=== PATIENT | male | born 1950 | race Caucasian/White ===

== ENCOUNTER 2020-09-13 09:00 | Day surgery (SDC) | payer OTHER, MEDICARE ==
[2020-09-11 14:20] VITALS: BMI 27.8
[2020-09-13] MEDS ORDERED: MIDAZOLAM HCL 2 MG/2 ML SINGLE DOSE VIAL ONE ×2 (10:40→11:52)
[2020-09-13] MEDS ORDERED: PROPOFOL 20 ML ONE ×5 (10:46)
[2020-09-13] MEDS ORDERED: BUPIVACAINE HCL/PF 0.25% (2.5MG/ML) 10 ML VIAL ONE (12:31)
[2020-09-13 13:14] VITALS: TEMP 97.6
[2020-09-13 13:17] VITALS: BP 131/74; PULSE 64
== END 2020-09-13 13:10 | disposition home or self-care (01) ==
LOC: FASU 09:00
PROVIDERS: ATTEND Orthopaedic Surgery Hand Surgery
PROC: 0LN70ZZ Release Right Hand Tendon, Open Approach (ICD-10-PCS; 2020-09-13)
PROC: 0RGW04Z Fusion of Right Finger Phalangeal Joint with Internal Fixation Device, Open Approach (ICD-10-PCS; principal; 2020-09-13 10:30)
PROC: 0LN70ZZ Release Right Hand Tendon, Open Approach (ICD-10-PCS; 2020-09-13 10:30)
DX: M19.041 Primary osteoarthritis, right hand (principal); M65.321 Trigger finger, right index finger; M65.331 Trigger finger, right middle finger
CPT/HCPCS: 73140-TC-RT-FY; 82962

== ENCOUNTER 2021-07-04 07:21 | Day surgery (SDC) | payer OTHER, MEDICARE ==
[2021-06-20 11:40] VITALS: BMI 28.4
[2021-07-04] MEDS ORDERED: PROPOFOL 20 ML ONE (09:14)
[2021-07-04] MEDS ORDERED: MIDAZOLAM HCL 2 MG/2 ML SINGLE DOSE VIAL ONE ×2 (09:14)
[2021-07-04] MEDS ORDERED: fentaNYL CITRATE 250 MCG/5 ML VIAL ONE (09:14)
[2021-07-04] MEDS ORDERED: KETOROLAC TROMETHAMINE 30 MG/1 ML VIAL ONE (09:41)
[2021-07-04] MEDS ORDERED: DEXAMETHASONE SOD PHOSPHATE 4 MG/1 ML VIAL ONE (09:41)
[2021-07-04] MEDS ORDERED: ceFAZolin SODIUM 1 GM VIAL ONE (09:41)
[2021-07-04] MEDS ORDERED: ONDANSETRON 4 MG/2 ML VIAL ONE (09:41)
[2021-07-04] MEDS ORDERED: oxyCODONE HCL 5 MG TABLET PO PRN (09:52)
[2021-07-04] MEDS ORDERED: ONDANSETRON 4 MG/2 ML VIAL IVPUSH PRN (09:52)
[2021-07-04] MEDS ORDERED: LACTATED RINGERS SOLUTION 1,000 ML IV SCH (10:00)
[2021-07-04 10:31] VITALS: TEMP 97.5
[2021-07-04 15:47] VITALS: BP 115/73; PULSE 63
== END 2021-07-04 10:55 | disposition home or self-care (01) ==
LOC: FASU 07:21
PROVIDERS: ATTEND Orthopaedic Surgery Hand Surgery
PROC: 0LN80ZZ Release Left Hand Tendon, Open Approach (ICD-10-PCS; principal; 2021-07-04 09:32)
DX: M65.332 Trigger finger, left middle finger (principal)
CPT/HCPCS: 82962; 94760

== ENCOUNTER 2021-10-24 06:37 | Day surgery (SDC) | payer OTHER, MEDICARE ==
[2021-10-19 11:39] VITALS: BMI 28.0
[2021-10-24 07:08] VITALS: RESP 18; TEMP 97.2
[2021-10-24] MEDS ORDERED: LIDOCAINE HCL 2% (20ML MULTI-DOSE VIAL) ONE (07:11)
[2021-10-24] MEDS ORDERED: DEXAMETHASONE SOD PHOSPHATE 4 MG/1 ML VIAL ONE (07:26)
[2021-10-24] MEDS ORDERED: LIDOCAINE HCL 2% 100 MG/5 ML DISP.SYRIN ONE (07:26)
[2021-10-24] MEDS ORDERED: PROPOFOL 20 ML ONE ×2 (07:26→08:17)
[2021-10-24] MEDS ORDERED: ONDANSETRON 4 MG/2 ML VIAL ONE (07:26)
[2021-10-24] MEDS ORDERED: KETOROLAC TROMETHAMINE 30 MG/1 ML VIAL ONE (07:26)
[2021-10-24] MEDS ORDERED: MIDAZOLAM HCL 2 MG/2 ML SINGLE DOSE VIAL ONE (07:26)
[2021-10-24 09:17] VITALS: BP 115/68; PULSE 66
== END 2021-10-24 09:30 | disposition home or self-care (01) ==
LOC: FASU 06:37
PROVIDERS: ATTEND Orthopaedic Surgery Hand Surgery
PROC: 0LN80ZZ Release Left Hand Tendon, Open Approach (ICD-10-PCS; principal; 2021-10-24 08:19)
DX: M65.352 Trigger finger, left little finger (principal)
CPT/HCPCS: 82962

== ENCOUNTER 2022-09-25 07:28 | Day surgery (SDC) | payer OTHER, MEDICARE ==
[2022-09-18 15:03] VITALS: BMI 27.3
[2022-09-25] MEDS ORDERED: oxyCODONE HCL 5 MG TABLET PO PRN (07:36)
[2022-09-25] MEDS ORDERED: ONDANSETRON 4 MG/2 ML VIAL IVPUSH PRN (07:36)
[2022-09-25] MEDS ORDERED: LACTATED RINGERS SOLUTION 1,000 ML IV SCH (07:45)
[2022-09-25] MEDS ORDERED: PROPOFOL 40 ML ONE (08:57)
[2022-09-25 09:45] VITALS: TEMP 96.5
[2022-09-25 10:03] VITALS: BP 121/65; PULSE 76; RESP 18
== END 2022-09-25 10:14 | disposition home or self-care (01) ==
LOC: FASU 07:28
PROVIDERS: ATTEND Orthopaedic Surgery Hand Surgery
PROC: 0LN70ZZ Release Right Hand Tendon, Open Approach (ICD-10-PCS; principal; 2022-09-25 09:06)
DX: M65.341 Trigger finger, right ring finger (principal)
CPT/HCPCS: 82962